=== PATIENT | male | born 1985 | race Caucasian/White ===

== ENCOUNTER → 2017-10-20 | Outpatient (REF) | payer OTHER | LOC: M LAB REF 11:18 | DX: H70.11 Chronic mastoiditis, right ear (principal) ==

== ENCOUNTER → 2021-04-28 | Outpatient (CLI) | payer OTHER ==
--- NOTE | 2021-04-29 07:17 | ECHO ---
ECHOCARDIOGRAM DATE OF PROCEDURE: 04/28/2021 Age: Gender: M Height: 73 inches Weight: 230 pounds REFERRING PHYSICIAN: Ellie Silva INDICATION: Cardiac murmur, unspecified MEASUREMENTS: 2D Measurements: Aortic root at the time of Valsalva: 7.1 cm Proximal ascending aorta: 7.5 cm Left atrium: 4.4 cm Left atrial volume index: 38 Interventricular septum: 1.5 cm Posterior wall: 1.8 cm Left ventricle diastole: 5.5 cm Aortic annulus: 2.0 cm Doppler Measurements: Severe aortic regurgitation No aortic stenosis Aortic valve velocity: 155 cm/s LVOT velocity: 86.2 cm/s Aortic regurgitation pressure half-time: 289 msec Very mild mitral regurgitation Mitral E velocity: 88.2 cm/s Mitral A velocity: 83.6 cm/s Mitral deceleration time: 166 msec Trace tricuspid regurgitation Trace pulmonic regurgitation Pulmonary acceleration time: 148 msec Inferior vena cava: 1.5 cm with normal respiratory variation DESCRIPTION: Rhythm was sinus. Image quality was good. Frequent premature ventricular contractions (PVCs). No pericardial effusion. This was a 2D, M-mode, color flow Doppler, and pulsed-wave Doppler examination. CONCLUSIONS: 1. 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 2. Three-cuspid aortic valve with normal-appearing aortic cusps. Severe aortic regurgitation as a consequence of dilatation of the aortic root. No aortic stenosis 3. Moderately-severe concentric left ventricular hypertrophy. Normal regional left ventricular (LV) wall motion and wall thickening. Normal LV systolic function. Left ventricular ejection fraction (LVEF) 60% by visual estimate. Normal peak longitudinal strain pattern. Indeterminate determination of LV diastolic function due to absence of mitral annular tissue Doppler assessment. 4. Moderate left atrial dilatation by left atrial volume index. 5. Suggestive of normal pulmonary artery systolic pressure and central venous pressure (CVP). Normal right ventricle size and systolic function. 6. No pericardial effusion. 7. Frequent PVCs. RECOMMENDATIONS: Recommend urgent consultation with a cardiothoracic surgeon who performs Bentall procedures (composite graft/aortic valve prosthesis). Suggest chest CT without contrast.
== END ==
LOC: M CARPUL 12:21
PROVIDERS: ATTEND Pediatrics
DX: R01.1 Cardiac murmur, unspecified (principal)

== ENCOUNTER → 2021-05-07 | Outpatient (CLI) | payer OTHER ==
--- NOTE | 2021-05-07 10:49 | REP ---
INDICATION: ABNORMAL FINDINGS ON DX IMAGING OF HEART AND COR CIRC ABNORMAL ECHO COMPARISON: None. TECHNIQUE: Standard helical technique without intravenous contrast administration. FINDINGS: There is aneurysmal dilatation of the aortic root and proximal ascending aorta with a maximal outer wall to outer wall AP dimension of 8.3 cm. This dilatated section is approximately 6.2 cm in length. There is a capacious superior pericardial recess. There is no pericardial or pleural effusion. There is no mediastinal or hilar adenopathy. The imaged osseous structures are within normal limits. The imaged upper abdomen is within normal limits. Evaluation of the lung russ shows no abnormal nodules, masses, or opacities. IMPRESSION: Ascending aorta as described above. <Electronically signed by Bryn Hayden > 05/07/21 [id number]
== END ==
LOC: M RAD 10:17
PROVIDERS: ATTEND Pediatrics
DX: R93.1 Abnormal findings on diagnostic imaging of heart and coronary circulation (principal)

== ENCOUNTER → 2021-06-30 | Outpatient (CLI) | payer OTHER ==
[2021-06-30 10:45] LABS: INR 1.51; PROTHROMBIN TIME 18.6 SECONDS (12.7-14.5)
== END ==
LOC: M WUC 09:20
DX: Z51.81 Encounter for therapeutic drug level monitoring (principal); Z79.01 Long term (current) use of anticoagulants

== ENCOUNTER → 2021-07-03 | Outpatient (REF) | payer OTHER ==
[2021-07-03 10:10] LABS: INR 1.61; PROTHROMBIN TIME 19.5 SECONDS (12.7-14.5)
== END ==
LOC: M WUC 09:32
DX: Z51.81 Encounter for therapeutic drug level monitoring (principal); Z79.01 Long term (current) use of anticoagulants

== ENCOUNTER → 2021-07-07 | Outpatient (CLI) | payer OTHER ==
[2021-07-07 10:27] LABS: INR 2.19; PROTHROMBIN TIME 24.8 SECONDS (12.7-14.5)
== END ==
LOC: M WUC 08:35
DX: Z51.81 Encounter for therapeutic drug level monitoring (principal); Z79.01 Long term (current) use of anticoagulants

== ENCOUNTER → 2021-07-14 | Outpatient (CLI) | payer OTHER ==
[2021-07-14 09:51] LABS: INR 2.96; PROTHROMBIN TIME 31.1 SECONDS (12.7-14.5)
== END ==
LOC: M WUC 08:43
PROVIDERS: ATTEND Nurse Practitioner Family
DX: Z79.01 Long term (current) use of anticoagulants (principal); Z51.81 Encounter for therapeutic drug level monitoring

== ENCOUNTER → 2021-07-21 | Outpatient (CLI) | payer OTHER ==
[2021-07-21 10:08] LABS: INR 3.55; PROTHROMBIN TIME 35.7 SECONDS (12.7-14.5)
== END ==
LOC: M WUC 08:31
PROVIDERS: ATTEND Nurse Practitioner Family
DX: Z51.81 Encounter for therapeutic drug level monitoring (principal); Z79.01 Long term (current) use of anticoagulants

== ENCOUNTER → 2021-07-28 | Outpatient (CLI) | payer OTHER ==
[2021-07-28 10:19] LABS: INR 1.98; PROTHROMBIN TIME 22.9 SECONDS (12.7-14.5)
== END ==
LOC: M WUC 08:24
PROVIDERS: ATTEND Nurse Practitioner Family
DX: Z79.01 Long term (current) use of anticoagulants (principal); Z51.81 Encounter for therapeutic drug level monitoring

== ENCOUNTER → 2021-08-05 | Outpatient (CLI) | payer OTHER ==
[2021-08-05 11:40] LABS: INR 2.32; PROTHROMBIN TIME 25.9 SECONDS (12.7-14.5)
== END ==
LOC: M WUC 10:05
PROVIDERS: ATTEND Internal Medicine Cardiovascular Disease
DX: Z95.2 Presence of prosthetic heart valve (principal)

== ENCOUNTER → 2021-08-12 | Outpatient (CLI) | payer OTHER ==
[2021-08-12 11:42] LABS: INR 2.33
== END ==
LOC: M WUC 08:53
PROVIDERS: ATTEND Physician Assistant
DX: Z95.2 Presence of prosthetic heart valve (principal)

== ENCOUNTER → 2021-08-20 | Outpatient (CLI) | payer OTHER ==
[2021-08-20 10:37] LABS: INR 2.19; PROTHROMBIN TIME 24.8 SECONDS (12.7-14.5)
== END ==
LOC: M WUC 08:48
PROVIDERS: ATTEND Physician Assistant
DX: Z95.2 Presence of prosthetic heart valve (principal)

== ENCOUNTER → 2021-09-17 | Outpatient (CLI) | payer OTHER ==
[2021-09-17 12:12] LABS: INR 2.02; PROTHROMBIN TIME 23.3 SECONDS (12.7-14.5)
== END ==
LOC: M WUC 09:29
PROVIDERS: ATTEND Physician Assistant
DX: Z95.2 Presence of prosthetic heart valve (principal)

== ENCOUNTER → 2021-10-06 | Outpatient (CLI) | payer OTHER ==
[2021-10-06 12:33] LABS: INR 1.96; PROTHROMBIN TIME 22.7 SECONDS (12.7-14.5)
== END ==
LOC: M WUC 10:10
PROVIDERS: ATTEND Physician Assistant
DX: Z95.2 Presence of prosthetic heart valve (principal)

== ENCOUNTER → 2021-10-20 | Outpatient (CLI) | payer OTHER ==
[2021-10-20 12:50] LABS: INR 1.64; PROTHROMBIN TIME 19.8 SECONDS (12.7-14.5)
== END ==
LOC: M WUC 10:01
PROVIDERS: ATTEND Physician Assistant
DX: Z95.2 Presence of prosthetic heart valve (principal)

== ENCOUNTER → 2021-11-03 | Outpatient (CLI) | payer OTHER ==
[2021-11-03 13:12] LABS: INR 1.96; PROTHROMBIN TIME 22.7 SECONDS (12.7-14.5)
== END ==
LOC: M WUC 08:49
PROVIDERS: ATTEND Physician Assistant
DX: Z95.2 Presence of prosthetic heart valve (principal)

== ENCOUNTER → 2021-11-17 | Outpatient (CLI) | payer OTHER ==
[2021-11-17 11:13] LABS: INR 2.81; PROTHROMBIN TIME 29.9 SECONDS (12.7-14.5)
== END ==
LOC: M WUC 08:22
PROVIDERS: ATTEND Physician Assistant
DX: Z95.2 Presence of prosthetic heart valve (principal)

== ENCOUNTER → 2021-12-08 | Outpatient (REF) | payer OTHER ==
[2021-12-08 12:59] LABS: INR 2.46
== END ==
LOC: M WUC 12:21
PROVIDERS: ATTEND Physician Assistant
DX: Z95.2 Presence of prosthetic heart valve (principal)

== ENCOUNTER → 2022-01-07 | Outpatient (CLI) | payer OTHER ==
[2022-01-07 12:45] LABS: INR 3.06; PROTHROMBIN TIME 31.9 SECONDS (12.7-14.5)
== END ==
LOC: M WUC 09:59
PROVIDERS: ATTEND Physician Assistant
DX: Z95.2 Presence of prosthetic heart valve (principal); Z79.01 Long term (current) use of anticoagulants

== ENCOUNTER → 2022-02-04 | Outpatient (CLI) | payer OTHER ==
[2022-02-04 13:28] LABS: INR 2.67; PROTHROMBIN TIME 28.8 SECONDS (12.7-14.5)
== END ==
LOC: M WUC 09:26
PROVIDERS: ATTEND Physician Assistant
DX: Z95.2 Presence of prosthetic heart valve (principal)

== ENCOUNTER → 2022-03-04 | Outpatient (CLI) | payer OTHER ==
[2022-03-04 10:10] LABS: INR 2.94
== END ==
LOC: M WUC 08:22
PROVIDERS: ATTEND Physician Assistant
DX: Z95.2 Presence of prosthetic heart valve (principal); Z79.01 Long term (current) use of anticoagulants

== ENCOUNTER → 2022-04-01 | Outpatient (CLI) | payer OTHER ==
[2022-04-01 13:51] LABS: INR 3.2
== END ==
LOC: M WUC 10:09
PROVIDERS: ATTEND Physician Assistant
DX: Z95.2 Presence of prosthetic heart valve (principal); Z79.01 Long term (current) use of anticoagulants

== ENCOUNTER → 2022-04-27 | Outpatient (CLI) | payer OTHER ==
[2022-04-27 10:14] LABS: INR 2.25; PROTHROMBIN TIME 25.3 SECONDS (12.7-14.5)
== END ==
LOC: M WUC 08:36
PROVIDERS: ATTEND Physician Assistant
DX: Z79.01 Long term (current) use of anticoagulants (principal)

== ENCOUNTER → 2022-05-07 | Outpatient (CLI) | payer OTHER ==
[2022-05-07 17:03] LABS: INR 1.76; PROTHROMBIN TIME 20.9 SECONDS (12.7-14.5)
== END ==
LOC: M WUC 12:59
PROVIDERS: ATTEND Physician Assistant
DX: Z51.81 Encounter for therapeutic drug level monitoring (principal); Z79.01 Long term (current) use of anticoagulants

== ENCOUNTER → 2022-05-18 | Outpatient (CLI) | payer OTHER ==
[2022-05-18 12:21] LABS: INR 2.7
== END ==
LOC: M WUC 09:36
PROVIDERS: ATTEND Physician Assistant
DX: Z79.01 Long term (current) use of anticoagulants (principal)

== ENCOUNTER → 2022-06-15 | Outpatient (CLI) | payer OTHER ==
[2022-06-15 13:36] LABS: INR 3.02; PROTHROMBIN TIME 31.8 SECONDS (12.5-14.5)
== END ==
LOC: M WUC 09:32
PROVIDERS: ATTEND Physician Assistant
DX: Z79.01 Long term (current) use of anticoagulants (principal)

== ENCOUNTER → 2022-07-13 | Outpatient (CLI) | payer OTHER ==
[2022-07-13 17:37] LABS: INR 3.02; PROTHROMBIN TIME 31.7 SECONDS (12.5-14.5)
== END ==
LOC: M WUC 10:37
PROVIDERS: ATTEND Physician Assistant
DX: Z79.01 Long term (current) use of anticoagulants (principal)

== ENCOUNTER → 2022-08-14 | Outpatient (CLI) | payer OTHER ==
[2022-08-14 12:34] LABS: INR 2.76; PROTHROMBIN TIME 29.6 SECONDS (12.5-14.5)
== END ==
LOC: M WUC 08:54
PROVIDERS: ATTEND Physician Assistant
DX: Z79.01 Long term (current) use of anticoagulants (principal)

== ENCOUNTER → 2022-09-07 | Outpatient (CLI) | payer OTHER ==
[2022-09-07 14:14] LABS: INR 2.97; PROTHROMBIN TIME 31.4 SECONDS (12.5-14.5)
== END ==
LOC: M WUC 09:13
PROVIDERS: ATTEND Physician Assistant
DX: Z79.01 Long term (current) use of anticoagulants (principal)

== ENCOUNTER → 2022-10-05 | Outpatient (REF) | payer OTHER ==
[2022-10-05 13:12] LABS: INR 3.21; PROTHROMBIN TIME 33.3 SECONDS (12.5-14.5)
== END ==
LOC: M LABWUC 12:05
PROVIDERS: ATTEND Physician Assistant
DX: Z79.01 Long term (current) use of anticoagulants (principal)

== ENCOUNTER → 2022-11-11 | Outpatient (CLI) | payer OTHER ==
[2022-11-11 09:54] LABS: INR 2.69
== END ==
LOC: M WUC 08:17
PROVIDERS: ATTEND Physician Assistant
DX: Z79.01 Long term (current) use of anticoagulants (principal)

== ENCOUNTER → 2022-12-09 | Outpatient (CLI) | payer OTHER ==
[2022-12-09 15:39] LABS: INR 3.18; PROTHROMBIN TIME 33.1 SECONDS (12.5-14.5)
== END ==
LOC: M WUC 09:41
PROVIDERS: ATTEND Physician Assistant
DX: Z95.2 Presence of prosthetic heart valve (principal)

== ENCOUNTER → 2023-01-06 | Outpatient (REF) | payer OTHER ==
[2023-01-06 12:45] LABS: INR 1.71; PROTHROMBIN TIME 20.4 SECONDS (12.5-14.5)
== END ==
LOC: M LAB REF 12:03
PROVIDERS: ATTEND Physician Assistant
DX: Z95.2 Presence of prosthetic heart valve (principal)

== ENCOUNTER → 2023-01-12 | Outpatient (CLI) | payer OTHER ==
[2023-01-12 13:42] LABS: INR 2.65; PROTHROMBIN TIME 28.7 SECONDS (12.5-14.5)
== END ==
LOC: M WUC 09:14
PROVIDERS: ATTEND Internal Medicine Cardiovascular Disease
DX: Z95.2 Presence of prosthetic heart valve (principal)

== ENCOUNTER → 2023-02-08 | Outpatient (CLI) | payer OTHER ==
[2023-02-08 10:58] LABS: INR 1.95; PROTHROMBIN TIME 22.6 SECONDS (12.5-14.5)
== END ==
LOC: M WUC 08:22
PROVIDERS: ATTEND Internal Medicine Cardiovascular Disease
DX: Z95.2 Presence of prosthetic heart valve (principal)

== ENCOUNTER → 2023-03-31 | Outpatient (REF) | payer OTHER ==
[2023-03-31 17:23] LABS: BASO % 0.7 % (0.0-1.0); EOS # 0.2 10^3/uL (0.0-0.5); EOS % 3.7 % (0.0-3.0); HEMATOCRIT 45.5 % (42.0-52.0); LYMPH # 2.4 10^3/uL (1.5-5.0); LYMPH % 38.6 % (24.0-44.0); MEAN CORPUSCULAR HEMOGLOBIN 29.4 pg (27.0-33.0); MONO # 0.6 10^3/uL (0.0-0.8); MONO % 9.1 % (2.0-8.0); NEUTROPHILS # 2.9 10^3/uL (1.5-8.5); NEUTROPHILS % 47.7 % (36.0-66.0); PLATELET COUNT, AUTOMATED 263 10^3/uL (150-450); RED BLOOD COUNT 5.11 10^6/uL (4.30-6.10); WHITE BLOOD COUNT 6.1 10^3/uL (4.0-10.0)
[2023-03-31 17:38] LABS: BLOOD UREA NITROGEN 9 MG/DL (9-23); CALCIUM LEVEL 8.9 MG/DL (8.5-10.1); CARBON DIOXIDE LEVEL 23 MMOL/L (20-31); CHLORIDE LEVEL 109 MMOL/L (98-107); CHOLESTEROL LEVEL 142 MG/DL (<200); CHOLESTEROL RISK RATIO 4.73 (<5); CREATININE FOR GFR 0.73 MG/DL (0.70-1.30); GLOMERULAR FILTRATION RATE > 60.0 (>60); GLUCOSE, FASTING 96 MG/DL (60-100); LDL CHOLESTEROL 80.6 MG/DL (<100); SODIUM LEVEL 142 MMOL/L (136-145); TRIGLYCERIDES LEVEL 157 MG/DL (<150)
[2023-03-31 17:40] LABS: THYROID STIMULATING HORMONE 1.428 uIU/ML (0.55-4.78)
== END ==
LOC: M LAB REF 16:49
PROVIDERS: ATTEND Pediatrics
DX: E78.5 Hyperlipidemia, unspecified (principal); I10 Essential (primary) hypertension

== ENCOUNTER → 2023-04-05 | Outpatient (CLI) | payer OTHER ==
[2023-04-05 11:50] LABS: INR 3.17; PROTHROMBIN TIME 31.7 SECONDS (12.5-14.5)
== END ==
LOC: M WUC 09:36
PROVIDERS: ATTEND Internal Medicine Cardiovascular Disease
DX: Z95.2 Presence of prosthetic heart valve (principal)

== ENCOUNTER → 2023-05-03 | Outpatient (REF) | payer OTHER ==
[2023-05-03 11:51] LABS: INR 2.56; PROTHROMBIN TIME 26.9 SECONDS (12.5-14.5)
== END ==
LOC: M LABWUC 09:38
PROVIDERS: ATTEND Physician Assistant
DX: Z95.2 Presence of prosthetic heart valve (principal)

== ENCOUNTER → 2023-05-31 | Outpatient (REF) | payer OTHER ==
[~2023-05-31] MED LIST: AMLO1TAB25; ASPI-226; LISI5TAB11; WARF-23
[2023-05-31 13:43] LABS: INR 2.97; PROTHROMBIN TIME 30.2 SECONDS (12.5-14.5)
== END ==
LOC: M WUC 12:11 → M LAB REF 12:11
PROVIDERS: ATTEND Physician Assistant
DX: Z95.2 Presence of prosthetic heart valve (principal)

== ENCOUNTER 2023-06-03 09:22 | Emergency (ER) | payer OTHER ==
[~2023-06-03] VITALS: Ht 182.9 cm; Wt 127.3 kg
[2023-06-03] MEDS ORDERED: ASPI-226 PO (09:53)
[2023-06-03] MEDS ORDERED: LISI5TAB11 PO (09:53)
[2023-06-03] MEDS ORDERED: WARF-23 (09:53)
[2023-06-03] MEDS ORDERED: AMLO1TAB25 PO (09:53)
[2023-06-03 11:53] LABS: BASO # 0.1 10^3/uL (0.0-0.2); EOS # 0.2 10^3/uL (0.0-0.5); EOS % 2.8 % (0.0-3.0); HEMATOCRIT 39.4 % (42.0-52.0); HEMOGLOBIN 13.3 g/dl (13.5-17.5); LYMPH # 2.3 10^3/uL (1.5-5.0); LYMPH % 31.4 % (24.0-44.0); MEAN CORPUSCULAR HEMOGLOBIN 29.8 pg (27.0-33.0); MEAN CORPUSCULAR HGB CONC 33.8 g/dl (32.0-36.5); MEAN CORPUSCULAR VOLUME 88.3 fl (80.0-96.0); MONO # 0.7 10^3/uL (0.0-0.8); MONO % 9.6 % (2.0-8.0); NEUTROPHILS # 3.9 10^3/uL (1.5-8.5); NEUTROPHILS % 54.9 % (36.0-66.0); PLATELET COUNT, AUTOMATED 285 10^3/uL (150-450); RED BLOOD COUNT 4.46 10^6/uL (4.30-6.10); WHITE BLOOD COUNT 7.2 10^3/uL (4.0-10.0)
[2023-06-03 12:03] LABS: INR 2.76; PROTHROMBIN TIME 28.5 SECONDS (12.5-14.5)
[2023-06-03 12:04] LABS: PARTIAL THROMBOPLASTIN TIME 40.5 SECONDS (24.8-34.2)
[2023-06-03] MEDS ORDERED: PHENYLEPHRINE 0.25% NASAL SPR 15 ML ONE (12:40)
[2023-06-03 14:48] VITALS: BP 134/68; TEMP 97.6; O2SAT 98
== END 2023-06-03 14:55 | disposition home or self-care (01) ==
LOC: M ED 09:22
DX: R04.0 Epistaxis (principal); Z95.5 Presence of coronary angioplasty implant and graft; Z79.82 Long term (current) use of aspirin; Z79.01 Long term (current) use of anticoagulants; Z79.899 Other long term (current) drug therapy

== ENCOUNTER 2023-06-05 12:21 | Emergency (ER) | payer OTHER ==
[~2023-06-05] VITALS: Ht 188 cm; Wt 127.3 kg
[~2023-06-05 12:21] MED LIST changes: -AMLO1TAB25; +AMLO1TAB25 PO; -ASPI-226; +ASPI-226 PO; -LISI5TAB11; +LISI5TAB11 PO
[2023-06-05 13:17] LABS: BASO % 0.5 % (0.0-1.0); EOS # 0.3 10^3/uL (0.0-0.5); EOS % 3.5 % (0.0-3.0); HEMATOCRIT 23.5 % (42.0-52.0); HEMOGLOBIN 8.2 g/dl (13.5-17.5); LYMPH # 2.4 10^3/uL (1.5-5.0); LYMPH % 32.4 % (24.0-44.0); MEAN CORPUSCULAR HEMOGLOBIN 30.5 pg (27.0-33.0); MEAN CORPUSCULAR HGB CONC 34.9 g/dl (32.0-36.5); MEAN CORPUSCULAR VOLUME 87.4 fl (80.0-96.0); MONO # 0.7 10^3/uL (0.0-0.8); MONO % 9.4 % (2.0-8.0); NEUTROPHILS % 53.1 % (36.0-66.0); PLATELET COUNT, AUTOMATED 220 10^3/uL (150-450); RED BLOOD COUNT 2.69 10^6/uL (4.30-6.10); WHITE BLOOD COUNT 7.5 10^3/uL (4.0-10.0)
[2023-06-05] MEDS ORDERED: PHENYLEPHRINE 0.5% NASAL SPRAY 15 ML ONE (13:20)
[2023-06-05 13:33] LABS: INR 1.83; PROTHROMBIN TIME 20.7 SECONDS (12.5-14.5)
[2023-06-05 13:34] LABS: PARTIAL THROMBOPLASTIN TIME 28.9 SECONDS (24.8-34.2)
[2023-06-05] MEDS ORDERED: MED REC IN PROGRESS XX SCH (13:40)
[2023-06-05] MEDS ORDERED: D32000CA PO (14:02)
[2023-06-05] MEDS ORDERED: FOLI400T13 PO (14:02)
[2023-06-05] MEDS ORDERED: CLAR1TAB13 PO (14:02)
[2023-06-05] MEDS ORDERED: HOME MED LIST COMPLETE! XX SCH (14:10)
[2023-06-05 14:33] VITALS: BP 133/57; TEMP 98.7; O2SAT 98
[2023-06-05] MEDS ORDERED: WARFARIN SOD 5MG TAB PO SCH (14:45)
[2023-06-05 14:57] VITALS: BP 121/58; TEMP 98.7; O2SAT 96
[2023-06-05 15:52] VITALS: BP 124/59; TEMP 98.7; O2SAT 97
[2023-06-05] MEDS ORDERED: HEPARIN DRIP 25,000 UNITS in IV 1 EA IV SCH (16:00)
[2023-06-05 16:17] VITALS: BP 120/58; TEMP 98.4; O2SAT 96
[2023-06-05 17:26] VITALS: BP 118/58; TEMP 98.7; O2SAT 96
== END 2023-06-05 14:58 | disposition short-term general hospital (02) ==
LOC: M ED 12:21
DX: R04.0 Epistaxis (principal); K92.2 Gastrointestinal hemorrhage, unspecified; I10 Essential (primary) hypertension; Z95.828 Presence of other vascular implants and grafts; Z95.2 Presence of prosthetic heart valve
CPT/HCPCS: 36430; 70486; 80047; 85025; 85610; 85730; 86850; 86900; 86901; 86920; 87635; 93041; 94760; 99285; P9016

== ENCOUNTER → 2023-06-09 | Outpatient (CLI) | payer OTHER ==
[~2023-06-09] MED LIST changes: +CLAR1TAB13 PO; +D32000CA PO; +FOLI400T13 PO
[2023-06-09 13:18] LABS: BASO # 0.1 10^3/uL (0.0-0.2); EOS # 0.4 10^3/uL (0.0-0.5); EOS % 4.3 % (0.0-3.0); HEMATOCRIT 29.3 % (42.0-52.0); HEMOGLOBIN 9.5 g/dl (13.5-17.5); LYMPH # 2.6 10^3/uL (1.5-5.0); LYMPH % 32.2 % (24.0-44.0); MEAN CORPUSCULAR HEMOGLOBIN 30.5 pg (27.0-33.0); MEAN CORPUSCULAR HGB CONC 32.4 g/dl (32.0-36.5); MEAN CORPUSCULAR VOLUME 94.2 fl (80.0-96.0); MONO # 0.8 10^3/uL (0.0-0.8); MONO % 10.4 % (2.0-8.0); NEUTROPHILS # 4.1 10^3/uL (1.5-8.5); NEUTROPHILS % 50.2 % (36.0-66.0); PLATELET COUNT, AUTOMATED 290 10^3/uL (150-450); RED BLOOD COUNT 3.11 10^6/uL (4.30-6.10); WHITE BLOOD COUNT 8.1 10^3/uL (4.0-10.0)
[2023-06-09 13:51] LABS: ALBUMIN 3.6 G/DL (3.2-5.2); BLOOD UREA NITROGEN 11 MG/DL (9-23); CALCIUM LEVEL 8.2 MG/DL (8.5-10.1); CARBON DIOXIDE LEVEL 26 MMOL/L (20-31); CHLORIDE LEVEL 106 MMOL/L (98-107); CREATININE FOR GFR 0.81 MG/DL (0.70-1.30); GLOMERULAR FILTRATION RATE > 60.0 (>60); GLUCOSE, FASTING 102 MG/DL (60-100); PHOSPHORUS LEVEL 3.9 MG/DL (2.5-4.9); SODIUM LEVEL 141 MMOL/L (136-145)
== END ==
LOC: M WUC 10:02
PROVIDERS: ATTEND Internal Medicine Cardiovascular Disease
DX: Z95.2 Presence of prosthetic heart valve (principal); I10 Essential (primary) hypertension

== ENCOUNTER → 2023-06-14 | Outpatient (CLI) | payer OTHER ==
[2023-06-14 12:00] LABS: INR 2.62
== END ==
LOC: M WUC 08:34
PROVIDERS: ATTEND Physician Assistant
DX: Z95.2 Presence of prosthetic heart valve (principal)

== ENCOUNTER → 2023-07-12 | Outpatient (CLI) | payer OTHER ==
[2023-07-12 11:47] LABS: INR 3.38; PROTHROMBIN TIME 32.9 SECONDS (12.5-14.5)
== END ==
LOC: M LAB 10:54
PROVIDERS: ATTEND Physician Assistant
DX: Z95.2 Presence of prosthetic heart valve (principal)

== ENCOUNTER → 2023-08-04 | Outpatient (REF) | payer OTHER ==
[2023-08-04 13:33] LABS: INR 2.69; PROTHROMBIN TIME 27.6 SECONDS (12.5-14.5)
== END ==
LOC: M LAB REF 12:11
PROVIDERS: ATTEND Physician Assistant
DX: Z95.2 Presence of prosthetic heart valve (principal)

== ENCOUNTER → 2023-09-06 | Outpatient (REF) | payer OTHER ==
[2023-09-06 12:26] LABS: INR 3.31; PROTHROMBIN TIME 32.4 SECONDS (12.5-14.5)
== END ==
LOC: M LABWUC 11:24
PROVIDERS: ATTEND Physician Assistant
DX: Z95.2 Presence of prosthetic heart valve (principal)

== ENCOUNTER → 2023-10-04 | Outpatient (REF) | payer OTHER ==
[2023-10-04 12:05] LABS: INR 2.89; PROTHROMBIN TIME 29.2 SECONDS (12.5-14.5)
== END ==
LOC: M LAB REF 11:11 → M LABWUC 11:11
PROVIDERS: ATTEND Physician Assistant
DX: Z95.2 Presence of prosthetic heart valve (principal)

== ENCOUNTER → 2023-11-01 | Outpatient (CLI) | payer OTHER ==
[2023-11-01 11:46] LABS: INR 3.31; PROTHROMBIN TIME 32.4 SECONDS (12.5-14.5)
== END ==
LOC: M WUC 08:48
PROVIDERS: ATTEND Physician Assistant
DX: Z95.2 Presence of prosthetic heart valve (principal); I48.21 Permanent atrial fibrillation; Z79.01 Long term (current) use of anticoagulants

== ENCOUNTER → 2023-11-15 | Outpatient (CLI) | payer OTHER ==
[2023-11-15 12:07] LABS: INR 2.12
== END ==
LOC: M WUC 10:14
PROVIDERS: ATTEND Physician Assistant
DX: Z95.2 Presence of prosthetic heart valve (principal); I48.21 Permanent atrial fibrillation; Z79.01 Long term (current) use of anticoagulants

== ENCOUNTER → 2023-11-29 | Outpatient (REF) | payer OTHER ==
[2023-11-29 10:43] LABS: INR 2.58; PROTHROMBIN TIME 26.7 SECONDS (12.5-14.5)
== END ==
LOC: M LABWUC 09:58
PROVIDERS: ATTEND Physician Assistant
DX: Z95.2 Presence of prosthetic heart valve (principal); I48.21 Permanent atrial fibrillation; Z79.01 Long term (current) use of anticoagulants

== ENCOUNTER → 2023-12-06 | Outpatient (REF) | payer OTHER ==
[2023-12-06 10:43] LABS: INR 2.19; PROTHROMBIN TIME 23.6 SECONDS (12.5-14.5)
== END ==
LOC: M LABWUC 10:18
PROVIDERS: ATTEND Physician Assistant
DX: Z95.2 Presence of prosthetic heart valve (principal); I48.21 Permanent atrial fibrillation; Z79.01 Long term (current) use of anticoagulants

== ENCOUNTER → 2023-12-22 | Outpatient (CLI) | payer OTHER | LOC: M PLAIMG 09:25 | PROVIDERS: ATTEND Internal Medicine Cardiovascular Disease | DX: I35.1 Nonrheumatic aortic (valve) insufficiency (principal) ==

== ENCOUNTER → 2023-12-27 | Outpatient (CLI) | payer OTHER ==
[2023-12-27 10:29] LABS: BASO # 0.1 10^3/uL (0.0-0.2); BASO % 1.1 % (0.0-1.0); EOS # 0.3 10^3/uL (0.0-0.5); EOS % 5.6 % (0.0-3.0); HEMATOCRIT 49.2 % (42.0-52.0); HEMOGLOBIN 15.7 g/dl (13.5-17.5); LYMPH # 2.5 10^3/uL (1.5-5.0); LYMPH % 40.5 % (24.0-44.0); MEAN CORPUSCULAR HEMOGLOBIN 28.6 pg (27.0-33.0); MEAN CORPUSCULAR HGB CONC 31.9 g/dl (32.0-36.5); MEAN CORPUSCULAR VOLUME 89.6 fl (80.0-96.0); MONO # 0.6 10^3/uL (0.0-0.8); NEUTROPHILS # 2.7 10^3/uL (1.5-8.5); NEUTROPHILS % 43.6 % (36.0-66.0); PLATELET COUNT, AUTOMATED 268 10^3/uL (150-450); RED BLOOD COUNT 5.49 10^6/uL (4.30-6.10); WHITE BLOOD COUNT 6.1 10^3/uL (4.0-10.0)
[2023-12-27 10:43] LABS: INR 2.79; PROTHROMBIN TIME 28.4 SECONDS (12.5-14.5)
[2023-12-27 10:51] LABS: ALBUMIN 3.7 G/DL (3.2-5.2); ALKALINE PHOSPHATASE 112 U/L (46-116); ALT/SGPT 33 U/L (7.0-40); AST/SGOT 21 U/L (<34); BILIRUBIN,TOTAL 0.5 MG/DL (0.3-1.2); BLOOD UREA NITROGEN 12 MG/DL (9-23); CALCIUM LEVEL 8.8 MG/DL (8.5-10.1); CARBON DIOXIDE LEVEL 25 MMOL/L (20-31); CHLORIDE LEVEL 108 MMOL/L (98-107); CREATININE FOR GFR 0.76 MG/DL (0.70-1.30); GLOMERULAR FILTRATION RATE > 60.0 (>60); GLUCOSE, FASTING 101 MG/DL (60-100); POTASSIUM SERUM 4.8 MMOL/L (3.5-5.1); SODIUM LEVEL 140 MMOL/L (136-145); TOTAL PROTEIN 6.4 G/DL (5.7-8.2)
[2023-12-27 10:52] LABS: THYROID STIMULATING HORMONE 2.514 uIU/ML (0.55-4.78)
== END ==
LOC: M WUC 08:08
PROVIDERS: ATTEND Internal Medicine Cardiovascular Disease
DX: I35.1 Nonrheumatic aortic (valve) insufficiency (principal); R94.31 Abnormal electrocardiogram [ECG] [EKG]; I49.3 Ventricular premature depolarization; I11.9 Hypertensive heart disease without heart failure

== ENCOUNTER → 2024-01-24 | Outpatient (REF) | payer OTHER ==
[2024-01-24 10:52] LABS: INR 4.02; PROTHROMBIN TIME 37.6 SECONDS (12.5-14.5)
== END ==
LOC: M LABWUC 09:52
PROVIDERS: ATTEND Physician Assistant
DX: Z95.2 Presence of prosthetic heart valve (principal); I48.21 Permanent atrial fibrillation; Z79.01 Long term (current) use of anticoagulants

== ENCOUNTER → 2024-02-07 | Outpatient (CLI) | payer OTHER ==
[2024-02-07 10:16] LABS: INR 2.96; PROTHROMBIN TIME 29.7 SECONDS (12.5-14.5)
== END ==
LOC: M WUC 08:05
PROVIDERS: ATTEND Physician Assistant
DX: Z95.2 Presence of prosthetic heart valve (principal); I48.21 Permanent atrial fibrillation; Z79.01 Long term (current) use of anticoagulants

== ENCOUNTER → 2024-02-21 | Outpatient (CLI) | payer OTHER ==
[2024-02-21 10:51] LABS: INR 3.04; PROTHROMBIN TIME 30.3 SECONDS (12.5-14.5)
== END ==
LOC: M WUC 08:20
PROVIDERS: ATTEND Physician Assistant
DX: Z95.2 Presence of prosthetic heart valve (principal); I48.21 Permanent atrial fibrillation; Z79.01 Long term (current) use of anticoagulants

== ENCOUNTER → 2024-03-15 | Outpatient (CLI) | payer OTHER ==
[2024-03-15 10:07] LABS: INR 2.48
== END ==
LOC: M WUC 09:02
PROVIDERS: ATTEND Internal Medicine Cardiovascular Disease
DX: Z95.2 Presence of prosthetic heart valve (principal); I48.21 Permanent atrial fibrillation; Z79.01 Long term (current) use of anticoagulants

== ENCOUNTER → 2024-04-12 | Outpatient (CLI) | payer OTHER ==
[2024-04-12 11:26] LABS: INR 2.7; PROTHROMBIN TIME 27.7 SECONDS (12.5-14.5)
== END ==
LOC: M WUC 09:39
PROVIDERS: ATTEND Physician Assistant
DX: Z95.2 Presence of prosthetic heart valve (principal); I48.21 Permanent atrial fibrillation; Z79.01 Long term (current) use of anticoagulants

== ENCOUNTER → 2024-05-10 | Outpatient (REF) | payer OTHER ==
[2024-05-10 13:13] LABS: INR 3.18; PROTHROMBIN TIME 31.4 SECONDS (12.5-14.5)
== END ==
LOC: M LABWUC 12:32
PROVIDERS: ATTEND Physician Assistant
DX: Z79.01 Long term (current) use of anticoagulants (principal); Z95.2 Presence of prosthetic heart valve

== ENCOUNTER → 2024-05-29 | Outpatient (REF) | payer OTHER ==
[2024-05-29 13:35] LABS: CREATININE, URINE 293.3 MG/DL; MAU/CREAT RATIO 1.3 MCG/MG (0.0-30.0)
[2024-05-29 15:09] LABS: BASO # 0.1 10^3/uL (0.0-0.2); BASO % 0.8 % (0.0-1.0); EOS # 0.3 10^3/uL (0.0-0.5); EOS % 4.1 % (0.0-3.0); HEMATOCRIT 50.8 % (42.0-52.0); HEMOGLOBIN 16.6 g/dl (13.5-17.5); LYMPH # 1.9 10^3/uL (1.5-5.0); LYMPH % 24.7 % (24.0-44.0); MEAN CORPUSCULAR HEMOGLOBIN 29.7 pg (27.0-33.0); MEAN CORPUSCULAR HGB CONC 32.7 g/dl (32.0-36.5); MEAN CORPUSCULAR VOLUME 90.9 fl (80.0-96.0); MONO # 0.7 10^3/uL (0.0-0.8); MONO % 8.4 % (2.0-8.0); NEUTROPHILS # 4.8 10^3/uL (1.5-8.5); NEUTROPHILS % 61.6 % (36.0-66.0); PLATELET COUNT, AUTOMATED 288 10^3/uL (150-450); RED BLOOD COUNT 5.59 10^6/uL (4.30-6.10); WHITE BLOOD COUNT 7.8 10^3/uL (4.0-10.0)
[2024-05-29 15:29] LABS: HEMOGLOBIN A1c 5.1 % (4.0-6.0)
[2024-05-29 15:40] LABS: ALKALINE PHOSPHATASE 98 U/L (46-116); ALT/SGPT 35 U/L (7.0-40); AST/SGOT 24 U/L (<34); BILIRUBIN,TOTAL 0.8 MG/DL (0.3-1.2); BLOOD UREA NITROGEN 11 MG/DL (9-23); CALCIUM LEVEL 10.1 MG/DL (8.5-10.1); CARBON DIOXIDE LEVEL 29 MMOL/L (20-31); CHLORIDE LEVEL 105 MMOL/L (98-107); CHOLESTEROL LEVEL 178 MG/DL (<200); CHOLESTEROL RISK RATIO 5.91 (<5); CREATININE FOR GFR 0.82 MG/DL (0.70-1.30); GLOMERULAR FILTRATION RATE > 60.0 (>60); GLUCOSE, FASTING 90 MG/DL (60-100); HDL CHOLESTEROL 30.1 MG/DL (>40); LDL CHOLESTEROL 72.3 MG/DL (<100); NON-HDL-C 147.9 MG/DL; POTASSIUM SERUM 5.1 MMOL/L (3.5-5.1); SODIUM LEVEL 139 MMOL/L (136-145); TOTAL PROTEIN 6.9 G/DL (5.7-8.2); TRIGLYCERIDES LEVEL 378 MG/DL (<150)
[2024-05-29 15:41] LABS: FREE T4 1.09 NG/DL (0.89-1.76)
== END ==
LOC: M LAB REF 12:14
PROVIDERS: ATTEND Pediatrics
DX: I10 Essential (primary) hypertension (principal); Z68.37 Body mass index [BMI] 37.0-37.9, adult; E66.9 Obesity, unspecified; Z79.01 Long term (current) use of anticoagulants; E04.9 Nontoxic goiter, unspecified

== ENCOUNTER → 2024-06-06 | Outpatient (CLI) | payer OTHER ==
[2024-06-06 12:04] LABS: INR 1.94; PROTHROMBIN TIME 21.5 SECONDS (12.5-14.5)
== END ==
LOC: M WUC 09:19
PROVIDERS: ATTEND Physician Assistant
DX: Z95.2 Presence of prosthetic heart valve (principal); I48.21 Permanent atrial fibrillation; Z79.01 Long term (current) use of anticoagulants

== ENCOUNTER → 2024-07-05 | Outpatient (CLI) | payer OTHER ==
[2024-07-05 09:56] LABS: INR 2.69; PROTHROMBIN TIME 28.6 SECONDS (12.5-14.5)
== END ==
LOC: M WUC 08:16
PROVIDERS: ATTEND Physician Assistant
DX: Z95.2 Presence of prosthetic heart valve (principal); I48.21 Permanent atrial fibrillation; Z79.01 Long term (current) use of anticoagulants

== ENCOUNTER → 2024-07-24 | Outpatient (CLI) | payer OTHER | LOC: M RAD 10:40 | PROVIDERS: ATTEND Pediatrics | DX: E04.2 Nontoxic multinodular goiter (principal) ==

== ENCOUNTER → 2024-08-02 | Outpatient (REF) | payer OTHER | LOC: M LAB REF 17:20 | PROVIDERS: ATTEND Physician Assistant Medical | DX: H70.11 Chronic mastoiditis, right ear (principal) ==

== ENCOUNTER → 2024-08-07 | Outpatient (CLI) | payer OTHER ==
[2024-08-07 11:10] LABS: INR 2.29; PROTHROMBIN TIME 25.3 SECONDS (12.5-14.5)
== END ==
LOC: M WUC 09:52
PROVIDERS: ATTEND Physician Assistant
DX: Z95.2 Presence of prosthetic heart valve (principal); I48.21 Permanent atrial fibrillation; Z79.01 Long term (current) use of anticoagulants

== ENCOUNTER → 2024-08-21 | Outpatient (CLI) | payer OTHER ==
[2024-08-21 12:09] LABS: BASO # 0.1 10^3/uL (0.0-0.2); EOS # 0.4 10^3/uL (0.0-0.5); EOS % 5.1 % (0.0-3.0); HEMATOCRIT 50.6 % (42.0-52.0); HEMOGLOBIN 16.5 g/dl (13.5-17.5); LYMPH # 2.6 10^3/uL (1.5-5.0); LYMPH % 35.5 % (24.0-44.0); MEAN CORPUSCULAR HEMOGLOBIN 29.6 pg (27.0-33.0); MEAN CORPUSCULAR HGB CONC 32.6 g/dl (32.0-36.5); MEAN CORPUSCULAR VOLUME 90.7 fl (80.0-96.0); MONO # 0.7 10^3/uL (0.0-0.8); MONO % 9.8 % (2.0-8.0); NEUTROPHILS # 3.5 10^3/uL (1.5-8.5); NEUTROPHILS % 48.3 % (36.0-66.0); PLATELET COUNT, AUTOMATED 241 10^3/uL (150-450); RED BLOOD COUNT 5.58 10^6/uL (4.30-6.10); WHITE BLOOD COUNT 7.2 10^3/uL (4.0-10.0)
[2024-08-21 12:25] LABS: INR 2.05; PROTHROMBIN TIME 23.3 SECONDS (12.5-14.5)
[2024-08-21 12:35] LABS: ALKALINE PHOSPHATASE 91 U/L (40-129); ALT/SGPT 32 U/L (7.0-40); AST/SGOT 25 U/L (<34); BILIRUBIN,TOTAL 0.5 MG/DL (0.3-1.2); BLOOD UREA NITROGEN 13 MG/DL (9-23); CALCIUM LEVEL 9.4 MG/DL (8.5-10.1); CARBON DIOXIDE LEVEL 26 MMOL/L (20-31); CHLORIDE LEVEL 106 MMOL/L (98-107); CREATININE FOR GFR 0.84 MG/DL (0.70-1.30); GLOMERULAR FILTRATION RATE > 60.0 (>60); GLUCOSE, FASTING 110 MG/DL (60-100); POTASSIUM SERUM 4.4 MMOL/L (3.5-5.1); SODIUM LEVEL 140 MMOL/L (136-145); TOTAL PROTEIN 6.7 G/DL (5.7-8.2)
== END ==
LOC: M WUC 09:37
PROVIDERS: ATTEND Physician Assistant
DX: Z95.2 Presence of prosthetic heart valve (principal); I48.21 Permanent atrial fibrillation; Z79.01 Long term (current) use of anticoagulants

== ENCOUNTER → 2024-09-27 | Outpatient (REF) | payer OTHER ==
[2024-09-27 12:39] LABS: INR 2.54; PROTHROMBIN TIME 27.4 SECONDS (12.5-14.5)
== END ==
LOC: M LAB REF 12:16 → M LABWUC 12:16
PROVIDERS: ATTEND Physician Assistant
DX: Z95.2 Presence of prosthetic heart valve (principal); I48.21 Permanent atrial fibrillation; Z79.01 Long term (current) use of anticoagulants

== ENCOUNTER → 2024-10-25 | Outpatient (REF) | payer OTHER ==
[2024-10-25 12:45] LABS: INR 2.5
== END ==
LOC: M LABWUC 12:24
PROVIDERS: ATTEND Physician Assistant
DX: Z95.2 Presence of prosthetic heart valve (principal); I48.21 Permanent atrial fibrillation; Z79.01 Long term (current) use of anticoagulants

== ENCOUNTER → 2024-11-22 | Outpatient (REF) | payer OTHER ==
[2024-11-22 12:07] LABS: INR 1.58; PROTHROMBIN TIME 19.1 SECONDS (12.5-14.5)
== END ==
LOC: M LABWUC 11:47
PROVIDERS: ATTEND Physician Assistant
DX: I48.21 Permanent atrial fibrillation (principal); Z95.2 Presence of prosthetic heart valve; Z79.01 Long term (current) use of anticoagulants

== ENCOUNTER → 2024-11-29 | Outpatient (REF) | payer OTHER ==
[2024-11-29 12:10] LABS: INR 1.81; PROTHROMBIN TIME 21.2 SECONDS (12.5-14.5)
== END ==
LOC: M LABWUC 11:55
PROVIDERS: ATTEND Physician Assistant
DX: Z95.2 Presence of prosthetic heart valve (principal); I48.21 Permanent atrial fibrillation; Z79.01 Long term (current) use of anticoagulants

== ENCOUNTER → 2024-12-11 | Outpatient (CLI) | payer OTHER ==
[2024-12-11 12:23] LABS: INR 1.84; PROTHROMBIN TIME 21.4 SECONDS (12.5-14.5)
== END ==
LOC: M WUC 09:14
PROVIDERS: ATTEND Physician Assistant
DX: Z95.2 Presence of prosthetic heart valve (principal); I48.21 Permanent atrial fibrillation; Z79.01 Long term (current) use of anticoagulants

== ENCOUNTER → 2024-12-25 | Outpatient (CLI) | payer OTHER ==
[2024-12-25 12:15] LABS: INR 2.86; PROTHROMBIN TIME 29.9 SECONDS (12.5-14.5)
== END ==
LOC: M WUC 08:24
PROVIDERS: ATTEND Physician Assistant
DX: Z95.2 Presence of prosthetic heart valve (principal); I48.21 Permanent atrial fibrillation; Z79.01 Long term (current) use of anticoagulants

== ENCOUNTER 2025-01-03 08:14 | Emergency (ER) | payer OTHER ==
[~2025-01-03] VITALS: Ht 182.9 cm; Wt 124.7 kg
[2025-01-03] MEDS ORDERED: LISI10TA22 (08:22)
[2025-01-03 09:51] LABS: BASO # 0.1 10^3/uL (0.0-0.2); BASO % 0.6 % (0.0-1.0); EOS # 0.3 10^3/uL (0.0-0.5); EOS % 2.3 % (0.0-3.0); HEMATOCRIT 50.2 % (42.0-52.0); HEMOGLOBIN 16.6 g/dl (13.5-17.5); LYMPH # 3.2 10^3/uL (1.5-5.0); LYMPH % 27.5 % (24.0-44.0); MEAN CORPUSCULAR HEMOGLOBIN 29.3 pg (27.0-33.0); MEAN CORPUSCULAR HGB CONC 33.1 g/dl (32.0-36.5); MEAN CORPUSCULAR VOLUME 88.7 fl (80.0-96.0); MONO # 1.1 10^3/uL (0.0-0.8); MONO % 9.7 % (2.0-8.0); NEUTROPHILS % 59.5 % (36.0-66.0); PLATELET COUNT, AUTOMATED 253 10^3/uL (150-450); RED BLOOD COUNT 5.66 10^6/uL (4.30-6.10); WHITE BLOOD COUNT 11.7 10^3/uL (4.0-10.0)
[2025-01-03 10:11] LABS: BLOOD UREA NITROGEN 12 MG/DL (9-23); CALCIUM LEVEL 9.1 MG/DL (8.5-10.1); CARBON DIOXIDE LEVEL 26 MMOL/L (20-31); CHLORIDE LEVEL 106 MMOL/L (98-107); CREATININE FOR GFR 0.73 MG/DL (0.70-1.30); GLOMERULAR FILTRATION RATE > 90.0 (>60); GLUCOSE, FASTING 89 MG/DL (60-100); POTASSIUM SERUM 4.1 MMOL/L (3.5-5.1); SODIUM LEVEL 141 MMOL/L (136-145)
[2025-01-03 10:18] LABS: CK-MB VALUE MASS < 1.0 NG/ML (<3.6)
[2025-01-03 10:41] LABS: CPK CREATINE PHOSPHOKINASE 82 U/L (46-171); MB/CK RELATIVE INDEX 1.21 (< OR =4)
[2025-01-03] MEDS ORDERED: ISOVUE-370 76% 100ML VIAL As Ordered ONE (10:55)
[2025-01-03 11:15] LABS: CK-MB VALUE MASS < 1.0 NG/ML (<3.6)
[2025-01-03 11:25] LABS: CPK CREATINE PHOSPHOKINASE 84 U/L (46-171); MB/CK RELATIVE INDEX 1.19 (< OR =4)
[2025-01-03 11:27] LABS: INR 3.19; PARTIAL THROMBOPLASTIN TIME 51.7 SECONDS (24.8-34.2); PROTHROMBIN TIME 32.5 SECONDS (12.5-14.5)
[2025-01-03 13:18] LABS: CK-MB VALUE MASS < 1.0 NG/ML (<3.6)
[2025-01-03 13:20] LABS: CPK CREATINE PHOSPHOKINASE 70 U/L (46-171); MB/CK RELATIVE INDEX 1.42 (< OR =4)
[2025-01-03 13:51] VITALS: O2SAT 95
[2025-01-03 13:55] VITALS: BP 106/54
[2025-01-03 14:00] VITALS: TEMP 98.2
== END 2025-01-03 14:02 | disposition home or self-care (01) ==
LOC: M ED 08:14
DX: R07.9 Chest pain, unspecified (principal); F17.210 Nicotine dependence, cigarettes, uncomplicated; Z79.01 Long term (current) use of anticoagulants; Z79.899 Other long term (current) drug therapy
CPT/HCPCS: 36415; 71045; 71275; 80048; 82550; 82553; 84484; 85025; 85610; 85730; 93005; 99284; Q9967

== ENCOUNTER → 2025-01-22 | Outpatient (CLI) | payer OTHER ==
[~2025-01-22] MED LIST changes: +LIDO1ADH93 TOP; +LISI10TA22; +METH-1164 PO
[2025-01-22 11:47] LABS: INR 3.85; PROTHROMBIN TIME 37.5 SECONDS (12.5-14.5)
== END ==
LOC: M WUC 09:26
PROVIDERS: ATTEND Physician Assistant
DX: Z95.2 Presence of prosthetic heart valve (principal); I48.21 Permanent atrial fibrillation

== ENCOUNTER → 2025-01-22 | Outpatient (CLI) | payer OTHER | LOC: M RAD 12:46 | PROVIDERS: ATTEND Pediatrics | DX: M62.838 Other muscle spasm (principal) ==

== ENCOUNTER → 2025-02-19 | Outpatient (CLI) | payer OTHER ==
[2025-02-19 11:58] LABS: INR 2.93
== END ==
LOC: M WUC 08:17
PROVIDERS: ATTEND Registered Nurse
DX: Z95.2 Presence of prosthetic heart valve (principal); I48.21 Permanent atrial fibrillation; Z79.01 Long term (current) use of anticoagulants

== ENCOUNTER → 2025-03-19 | Outpatient (REF) | payer OTHER ==
[2025-03-19 12:05] LABS: INR 2.51
== END ==
LOC: M LABWUC 11:42
PROVIDERS: ATTEND Registered Nurse
DX: I48.21 Permanent atrial fibrillation (principal); Z95.2 Presence of prosthetic heart valve; Z79.01 Long term (current) use of anticoagulants

== ENCOUNTER → 2025-04-08 | Outpatient (CLI) | payer OTHER | LOC: M RAD 13:17 | PROVIDERS: ATTEND Student in an Organized Health Care Education/Training Program | DX: R05.9 Cough, unspecified (principal) ==

== ENCOUNTER → 2025-04-25 | Outpatient (CLI) | payer OTHER ==
[2025-04-25 14:28] LABS: INR 3.17
== END ==
LOC: M WUC 12:34
PROVIDERS: ATTEND Physician Assistant
DX: I48.21 Permanent atrial fibrillation (principal); Z79.01 Long term (current) use of anticoagulants; Z95.2 Presence of prosthetic heart valve

== ENCOUNTER → 2025-05-23 | Outpatient (CLI) | payer OTHER ==
[2025-05-23 12:39] LABS: INR 3.24
== END ==
LOC: M WUC 09:10
PROVIDERS: ATTEND Physician Assistant
DX: Z95.2 Presence of prosthetic heart valve (principal); I48.21 Permanent atrial fibrillation; Z79.01 Long term (current) use of anticoagulants

== ENCOUNTER → 2025-06-20 | Outpatient (CLI) | payer OTHER ==
[2025-06-20 12:36] LABS: INR 3.53
== END ==
LOC: M WUC 08:43
PROVIDERS: ATTEND Physician Assistant
DX: Z51.81 Encounter for therapeutic drug level monitoring (principal); Z79.01 Long term (current) use of anticoagulants; Z95.2 Presence of prosthetic heart valve; I48.0 Paroxysmal atrial fibrillation

== ENCOUNTER → 2025-07-18 | Outpatient (CLI) | payer OTHER ==
[2025-07-18 12:38] LABS: INR 2.98
== END ==
LOC: M WUC 08:08
PROVIDERS: ATTEND Internal Medicine Cardiovascular Disease
DX: Z95.2 Presence of prosthetic heart valve (principal); Z79.01 Long term (current) use of anticoagulants; I48.0 Paroxysmal atrial fibrillation

== ENCOUNTER → 2025-08-13 | Outpatient (CLI) | payer OTHER ==
[2025-08-13 12:11] LABS: INR 2.48
== END ==
LOC: M WUC 08:11
PROVIDERS: ATTEND Physician Assistant
DX: Z95.2 Presence of prosthetic heart valve (principal); Z79.01 Long term (current) use of anticoagulants; I48.0 Paroxysmal atrial fibrillation